=== PATIENT | female | born 1990 | race American Indian/Alaskan Native ===

== ENCOUNTER 2018-11-09 15:36 | Emergency (ER) | payer OTHER ==
--- NOTE | 2018-11-09 15:45 | Emergency Department Report ---
Chief Complaint: Abdominal Pain Stated Complaint: ABD PAIN/FREQUENT URINATING Time Seen by Provider: 11/09/18 15:42 - HPI History of Present Illness: suprapubic abdominal cramping that began 2 days ago white vaginal discharge vaginal itching urinary frequency pt is sexually active, does not use protection, 1 partner pt states she ordered amoxicillin online which she states did not help no fever, N/V - Exam Vital Signs: Vital Signs 11/09/18 15:41 Temperature 99.1 F Pulse Rate 99 H Respiratory 18 Rate Blood Pressure 114/69 O2 Sat by Pulse 99 Oximetry MSE screening note: Focused history and physical exam performed. Due to findings the following was ordered: UA, urine preg, wet mount ED Disposition for MSE Condition: Stable Instructions: Abdominal Pain (ED)
[2018-11-09 19:42] LABS: Bacteria,Urine 1+ /HPF (Negative); Bilirubin,Urine NEG (Negative); Blood,Urine NEG (Negative); Color,Urine Yellow (Yellow); Protein,Urine <15 mg/dL mg/dL (Negative); Urobilinogen,Urine < 2.0 mg/dL (<2.0)
[2018-11-09 19:44] LABS: HCG Qualitative,Urine Negative (Negative)
[2018-11-09] MEDS ORDERED: ZITHROMAX PO ONE (21:06)
[2018-11-09] MEDS ORDERED: XYLOCAINE 1% MPF 5 mL INFILTRATI ONE (21:06)
[2018-11-09] MEDS ORDERED: ROCEPHIN IM ONE (21:06)
--- NOTE | 2018-11-09 21:14 | Emergency Department Report ---
ED Female HPI - General Chief complaint: Abdominal Pain Stated complaint: ABD PAIN/FREQUENT URINATING Time Seen by Provider: 11/09/18 15:42 Source: patient Mode of arrival: Ambulatory Limitations: No Limitations - History of Present Illness Initial comments: pt presents for dysuria vaginal pain white dyscharge x 2 week states partners with uti, pt deneis fever no chills no n/v. Complaint: vaginal discharge, dysuria Onset/Timin -: week(s) Radiation: non-radiating Severity: moderate Severity scale (0 -10): 4 Quality: cramping Consistency: constant Improves with: none Worsens with: none Are you Now?: No Last Menstrual Period: 10/25/18 EDC: 08/01/19 Associated Symptoms: vaginal discharge, dysuria - Related Data Sexually active: Yes : 0 Para: 0 A: 0 Home Medications Medication Instructions Recorded Confirmed Last Taken Tablet 1 tab PO DAILY 10/24/15 10/24/15 10/23/15 Previous Rx's Medication Instructions Recorded Last Taken Type Doxycycline [Vibramycin CAP] 100 mg PO BID 10 Days #20 capsule 11/09/18 Unknown Rx Ibuprofen 800 mg PO TID PRN #30 tablet 11/09/18 Unknown Rx Nitrofurantoin Monohyd/M-Cryst 100 mg PO BID 7 Days #14 capsule 11/09/18 Unknown Rx [Macrobid 100 mg Capsule] metroNIDAZOLE [Flagyl] 500 mg PO BID 10 Days #20 tab 11/09/18 Unknown Rx Allergies Allergy/AdvReac Type Severity Reaction Status Date / Time No Known Allergies Allergy Verified 11/09/18 15:37 ED Review of Systems ROS: Stated complaint: ABD PAIN/FREQUENT URINATING Other details as noted in HPI Constitutional: denies: chills, fever Eyes: denies: eye pain, eye discharge, vision change ENT: denies: ear pain, throat pain Respiratory: denies: cough, shortness of breath, wheezing Cardiovascular: denies: chest pain, palpitations Endocrine: no symptoms reported Gastrointestinal: denies: abdominal pain, nausea, diarrhea Genitourinary: dysuria, discharge. denies: urgency, frequency, hematuria, abnormal menses, dyspareunia Musculoskeletal: denies: back pain, joint swelling, arthralgia Skin: denies: rash, lesions Neurological: denies: headache, weakness, paresthesias Psychiatric: denies: anxiety, depression Hematological/Lymphatic: denies: easy bleeding, easy bruising ED Past Medical Hx - Past Medical History Previous Medical History?: Yes Hx Hypertension: No Hx Diabetes: No Hx Deep Vein Thrombosis: No Hx Renal Disease: No Hx Sickle Cell Disease: No Hx Seizures: No Hx Psychiatric Treatment: Yes (depression) Hx Asthma: No Hx HIV: No Additional medical history: ETOH abuse, weight lose - Surgical History Past Surgical History?: No - Social History Smoking Status: Never Smoker Substance Use Type: None - Medications Home Medications: Home Medications Medication Instructions Recorded Confirmed Last Taken Type Tablet 1 tab PO DAILY 10/24/15 10/24/15 10/23/15 History Doxycycline [Vibramycin CAP] 100 mg PO BID 10 Days #20 capsule 11/09/18 Unknown Rx Ibuprofen 800 mg PO TID PRN #30 tablet 11/09/18 Unknown Rx Nitrofurantoin Monohyd/M-Cryst 100 mg PO BID 7 Days #14 capsule 11/09/18 Unknown Rx [Macrobid 100 mg Capsule] metroNIDAZOLE [Flagyl] 500 mg PO BID 10 Days #20 tab 11/09/18 Unknown Rx ED Physical Exam - General Limitations: No Limitations General appearance: alert, in no apparent distress - Head Head exam: Present: atraumatic, normocephalic - Eye Eye exam: Present: normal appearance, PERRL, EOMI Pupils: Present: normal accommodation - ENT ENT exam: Present: mucous membranes moist - Neck Neck exam: Present: normal inspection - Respiratory Respiratory exam: Present: normal lung sounds bilaterally. Absent: respiratory distress, rhonchi - Cardiovascular Cardiovascular Exam: Present: regular rate, normal rhythm, normal heart sounds. Absent: systolic murmur, diastolic murmur, rubs, gallop - GI/Abdominal GI/Abdominal exam: Present: soft, normal bowel sounds - Rectal Rectal exam: Present: deferred - External exam: Present: normal external exam. Absent: erythema, swelling, lesions, lacerations, ecchymosis, bleeding Speculum exam: Present: erythema, vaginal discharge (white thick malodorous ), foreign body (retain tanpon). Absent: cervical discharge, vaginal bleeding, tissue, laceration Bi-manual exam: Absent: cervical motion tendernes - Extremities Exam Extremities exam: Present: normal inspection, normal capillary refill, pedal edema, calf tenderness - Back Exam Back exam: Present: normal inspection, full ROM. Absent: tenderness, CVA tenderness (R), CVA tenderness (L), muscle spasm, rash noted - Neurological Exam Neurological exam: Present: alert, oriented X3, CN II-XII intact, normal gait - Psychiatric Psychiatric exam: Present: normal affect, normal mood - Skin Skin exam: Present: warm ED Course Vital Signs 11/09/18 15:41 Temperature 99.1 F Pulse Rate 99 H Respiratory 18 Rate Blood Pressure 114/69 O2 Sat by Pulse 99 Oximetry ED Medical Decision Making - Lab Data Labs 11/09/18 19:13 Urine Color Yellow Urine Turbidity Clear Urine pH 8.0 H Ur Specific [place] 1.027 Urine Protein <15 mg/dl Urine Glucose (UA) Neg Urine Ketones Neg Urine Blood Neg Urine Nitrite Neg Urine Bilirubin Neg Urine Urobilinogen < 2.0 Ur Leukocyte Esterase Neg Urine WBC (Auto) 1.0 Urine RBC (Auto) 1.0 U Epithel Cells (Auto) 1.0 Urine Bacteria (Auto) 1+ Urine HCG, Qual Negative - Medical Decision Making this is bv with retain retained tanpon, tx rocephin, azithromycin dc to home with flagyl , doxycycline , macrobid follow up with curtain cutter hand in 2-3 days this is not toxoplasmosis pt is not septic Critical care attestation.: If time is entered above; I have spent that time in minutes in the direct care of this critically ill patient, excluding procedure time. ED Disposition Clinical Impression: Bacterial vaginosis, Urinary frequency Retained tampon Qualifiers: Encounter type: initial encounter Qualified Code(s): T19.2XXA - Foreign body in vulva and vagina, initial encounter Disposition: DC- TO HOME OR SELFCARE Is pt being admited?: No Does the pt Need Aspirin: No Condition: Stable Instructions: Bacterial Vaginosis (ED), Dysuria (ED), Abdominal Pain (ED) Prescriptions: metroNIDAZOLE [Flagyl] 500 mg PO BID 10 Days #20 tab Ibuprofen 800 mg PO TID PRN #30 tablet PRN Reason: pain Nitrofurantoin Monohyd/M-Cryst [Macrobid 100 mg Capsule] 100 mg PO BID 7 Days #14 capsule Doxycycline [Vibramycin CAP] 100 mg PO BID 10 Days #20 capsule Referrals: CARIN ROONEY MD [Primary Care Provider] - 3-5 Days Forms: STI Treatment and Prevention, Work/School Release Form(ED)
[2018-11-09 21:30] VITALS: BP 122/71
== END 2018-11-09 21:27 | disposition home or self-care (01) ==
LOC: ED 15:36
DX: N76.0 Acute vaginitis (principal)
CPT/HCPCS: 81001; 81025; 87210; 87591; 96372; 99284; J0696

== ENCOUNTER 2019-07-15 06:18 | Emergency (ER) | payer SELFPAY ==
[2019-07-15 06:37] VITALS: BP 112/69
[2019-07-15] MEDS ORDERED: diphenhydrAMINE 25 MG CAP PO ONE (07:11)
[2019-07-15] MEDS ORDERED: METOCLOPRAMIDE 10 MG TAB ONE (07:11)
[2019-07-15] MEDS ORDERED: ACETAMINOPHEN 500 MG TAB ONE (07:11)
[2019-07-15] MEDS: METOCLOPRAMIDE 10 MG TAB PO ONE ×2 (07:15→07:29)
[2019-07-15] MEDS: diphenhydrAMINE 25 MG CAP PO ONE ×2 (07:15→07:29)
[2019-07-15] MEDS: ACETAMINOPHEN 500 MG TAB PO ONE ×2 (07:15→07:29)
[2019-07-15] MEDS ORDERED: BUTALB/ACETAMINOPHEN/CAFFEINE TAB PO ONE (08:43)
[2019-07-15] MEDS ORDERED: DEXAMETHASONE 4 MG TAB PO ONE (08:44)
--- NOTE | 2019-07-15 09:03 | Emergency Department Report ---
ED Headache HPI - General Chief Complaint: Headache Stated Complaint: NAUSEA VOMITING HEADACHE Time Seen by Provider: 07/15/19 07:34 - History of Present Illness Initial Comments: 29-year-old -[place] female patient with history of depression and complains of intermittent headaches for the past 3 days. She states the headaches have been left-sided and do resolve with Tylenol and ibuprofen, however the headaches return after 4-5 hours. Any head trauma, dizziness, vision changes, numbness/tingling/weakness, confusion, or history of migraines. She states she used to get a lot of headaches 2 years ago but they are very infrequent now. He rates the headache as a 6/10 in severity and describes it as a throbbing type pain. He also admits to nausea without vomiting with the headaches. She denies any photophobia or sensitivity to sound Quality: moderate, throbbing Recent Head Trauma: no recent headache/trauma Associated Symptoms: denies symptoms Allergies/Adverse Reactions: Allergies No Known Allergies Allergy (Verified 11/09/18 15:37) Home Medications: Ambulatory Orders Tablet 1 tab PO DAILY 10/24/15 DOXYCYCLINE Hyclate [Vibramycin CAP] 100 mg PO BID 10 Days #20 capsule 11/09/18 Ibuprofen 800 mg PO TID PRN #30 tablet 11/09/18 Nitrofurantoin Monohyd/M-Cryst [Macrobid 100 mg Capsule] 100 mg PO BID 7 Days #14 capsule 11/09/18 metroNIDAZOLE [Flagyl] 500 mg PO BID 10 Days #20 tab 11/09/18 ED Review of Systems ROS: Stated complaint: NAUSEA VOMITING HEADACHE Other details as noted in HPI Comment: All other systems reviewed and negative Neurological: as per HPI ED Past Medical Hx - Past Medical History Previous Medical History?: Yes Hx Hypertension: No Hx Diabetes: No Hx Deep Vein Thrombosis: No Hx Renal Disease: No Hx Sickle Cell Disease: No Hx Seizures: No Hx Psychiatric Treatment: Yes (depression) Hx Asthma: No Hx HIV: No Additional medical history: ETOH abuse, weight loss - Social History Smoking Status: Never Smoker Substance Use Type: None - Medications Home Medications: Home Medications Medication Instructions Recorded Confirmed Last Taken Type Tablet 1 tab PO DAILY 10/24/15 10/24/15 10/23/15 History DOXYCYCLINE Hyclate [Vibramycin 100 mg PO BID 10 Days #20 capsule 11/09/18 Unknown Rx CAP] Ibuprofen 800 mg PO TID PRN #30 tablet 11/09/18 Unknown Rx Nitrofurantoin Monohyd/M-Cryst 100 mg PO BID 7 Days #14 capsule 11/09/18 Unknown Rx [Macrobid 100 mg Capsule] metroNIDAZOLE [Flagyl] 500 mg PO BID 10 Days #20 tab 11/09/18 Unknown Rx ED Physical Exam - General Limitations: No Limitations General appearance: alert, in no apparent distress - Head Head exam: Present: atraumatic, normocephalic - Eye Eye exam: Present: normal appearance, PERRL, EOMI. Absent: scleral icterus - Neck Neck exam: Present: normal inspection, full ROM. Absent: tenderness - Respiratory Respiratory exam: Present: normal lung sounds bilaterally. Absent: respiratory distress - Cardiovascular Cardiovascular Exam: Present: regular rate, normal rhythm. Absent: systolic murmur, diastolic murmur, rubs, gallop - GI/Abdominal GI/Abdominal exam: Absent: guarding - Neurological Exam Neurological exam: Present: alert, oriented X3, CN II-XII intact, normal gait. Absent: motor sensory deficit - Expanded Neurological Exam Expanded Cerebellar function: Finger to Nose: Normal, Heel to Camp: Normal Motor strength exam: RUE: 5, LUE: 5, RLE: 5, LLE: 5 - Psychiatric Psychiatric exam: Present: normal affect, agitated - Skin Skin exam: Present: warm, dry, intact, normal color. Absent: rash ED Course Vital Signs 07/15/19 06:31 Temperature 98.6 F Pulse Rate 75 Respiratory 18 Rate Blood Pressure 112/69 O2 Sat by Pulse 99 Oximetry ED Medical Decision Making - Lab Data Lab Results 07/15/19 07/15/19 Range/Units 08:52 Unknown Urine Color Yellow (Yellow) Urine Turbidity Clear (Clear) Urine pH 6.0 (5.0-7.0) Ur Specific [place] 1.026 (1.003-1.030) Urine Protein <15 mg/dl (Negative) mg/dL Urine Glucose (UA) Neg (Negative) mg/dL Urine Ketones Neg (Negative) mg/dL Urine Blood Neg (Negative) Urine Nitrite Neg (Negative) Urine Bilirubin Neg (Negative) Urine Urobilinogen < 2.0 (<2.0) mg/dL Ur Leukocyte Esterase Neg (Negative) Urine WBC (Auto) 1.0 (0.0-6.0) /HPF Urine RBC (Auto) 2.0 (0.0-6.0) /HPF U Epithel Cells (Auto) 7.0 (0-13.0) /HPF Urine Bacteria (Auto) 2+ (Negative) /HPF Urine Mucus 2+ /HPF Urine HCG, Qual Negative (Negative) - Medical Decision Making 29-year-old -[place] female here for intermittent headaches for the past 3 days. She denies any neuro symptoms and she has a normal neuro exam. Headache has resolved with Fioricet and Decadron. Patient refused lab work for further investigation of headache despite explaining the importance of the lab work. UA is negative for infection. Recommend follow-up with neurology within 2-3 days. Discussed strict return precautions patient states understanding Critical care attestation.: If time is entered above; I have spent that time in minutes in the direct care of this critically ill patient, excluding procedure time. ED Disposition Clinical Impression: Headache Qualifiers: Headache type: other headache syndrome Qualified Code(s): G44.89 - Other headache syndrome Disposition: DC- TO HOME OR SELFCARE Is pt being admited?: No Condition: Stable Instructions: Acute Headache (ED) Referrals: TYLER QUINTANILLA MD [Staff Physician] - 2-3 Days
[2019-07-15 09:17] LABS: Bacteria,Urine 2+ /HPF (Negative); Bilirubin,Urine NEG (Negative); Blood,Urine NEG (Negative); Color,Urine Yellow (Yellow); Mucus,Urine 2+ /HPF; Protein,Urine <15 mg/dL mg/dL (Negative); Urobilinogen,Urine < 2.0 mg/dL (<2.0)
[2019-07-15 09:44] LABS: HCG Qualitative,Urine Negative (Negative)
== END 2019-07-15 10:20 | disposition home or self-care (01) ==
LOC: ED 06:18
DX: G44.89 Other headache syndrome (principal); F32.9 Major depressive disorder, single episode, unspecified; Z79.1 Long term (current) use of non-steroidal anti-inflammatories (NSAID); Z79.899 Other long term (current) drug therapy
CPT/HCPCS: 81001; 81025; 99283; J8540